=== PATIENT | male | born 1990 | race Caucasian/White ===

== ENCOUNTER 2021-11-24 03:18 | Emergency (ER) | payer OTHER ==
[~2021-11-24] VITALS: Ht 182.9 cm; Wt 68.0 kg
[2021-11-24] MEDS ORDERED: PROTONIX20 MG PO (04:29)
[2021-11-24] MEDS ORDERED: CARAFATE1 GM PO (04:29)
== END 2021-11-24 04:44 | disposition home or self-care (01) ==
LOC: ED 03:18
DX: K29.70 Gastritis, unspecified, without bleeding (principal)
CPT/HCPCS: 36415; 80053; 81001; 85025; 99284